=== PATIENT | male | born 1935 | race African-American/Black ===

== ENCOUNTER 2022-08-13 14:11 | Outpatient (CLI) | payer OTHER | END 2022-08-13 19:26 | disposition home or self-care (01) | LOC: RAD 14:11 | PROVIDERS: ATTEND Family Medicine | DX: R10.9 Unspecified abdominal pain (principal); K59.00 Constipation, unspecified ==

== ENCOUNTER 2022-08-27 12:31 | Inpatient (IN) | payer OTHER ==
[~2022-08-27] VITALS: Ht 167.6 cm; Wt 50.9 kg
[2022-08-27] VITALS (8 sets, daily range): BP systolic 155–244; BP diastolic 59–85; TEMP 97.5–98.3; Ht 167.6 cm; Wt 50.9 kg
[2022-08-27 13:25] LABS: POTASSIUM 4.4 mmol/L (3.6-5.2)
[2022-08-27 15:46] LABS: PLATELET COUNT 372 K/uL (142-355)
[2022-08-27] MEDS ORDERED: LIPITOR80 MG PO (19:21)
[2022-08-27] MEDS ORDERED: CLOPIDOGREL75 MG PO (19:22)
[2022-08-27] MEDS ORDERED: HYDR10TA47 PO (19:22)
[2022-08-27] MEDS ORDERED: LISI20TA11 PO (19:23)
[2022-08-27] MEDS ORDERED: MEGESTROL400 MG/10 PO (19:25)
[2022-08-27] MEDS ORDERED: TAMSULOSIN0.4 MG PO (19:26)
[2022-08-27] MEDS ORDERED: NITR0.4S2 SL (19:27)
[2022-08-27] MEDS ORDERED: AMLODIPINE BESYLATE PO (19:28)
[2022-08-28] VITALS (8 sets, daily range): BP systolic 149–196; BP diastolic 47–80; TEMP 97.4–98.2
[2022-08-28 05:38] LABS: PLATELET COUNT 267 K/uL (142-355)
[2022-08-28 06:07] LABS: POTASSIUM 5.2 mmol/L (3.6-5.2)
[2022-08-28] MEDS ORDERED: BREZTRI AEROSPH1 AER INH (09:09)
[2022-08-28] MEDS ORDERED: ALBU90AE13 INH (09:09)
[2022-08-28] MEDS ORDERED: ALBUTEROL0.083 % INH (09:11)
[2022-08-29 04:00] VITALS: BP 162/46; TEMP 97.9
[2022-08-29 07:54] VITALS: BP 192/59; TEMP 98
[2022-08-29 12:11] VITALS: BP 190/61; TEMP 98.1
[2022-08-29 16:16] VITALS: BP 140/43; TEMP 97.8
[2022-08-29 20:00] VITALS: BP 131/44; TEMP 98.7
[2022-08-29 23:53] VITALS: BP 146/54; TEMP 98.5
[2022-08-30 04:00] VITALS: BP 152/58; TEMP 98.9
[2022-08-30 05:30] LABS: PLATELET COUNT 214 K/uL (142-355)
[2022-08-30 05:40] LABS: POTASSIUM 4.8 mmol/L (3.6-5.2)
[2022-08-30 08:00] VITALS: BP 162/49; TEMP 98.8
[2022-08-30] MEDS ORDERED: ONDA4TAB3 PO (12:05)
[2022-08-30] MEDS ORDERED: PANTOPRAZOLE 40MG TA PO (12:05)
[2022-08-30] MEDS ORDERED: METO50TA27 PO (12:05)
[2022-08-30] MEDS ORDERED: MEGESTROL400 MG/10 PO (12:05)
[2022-08-30] MEDS ORDERED: ATOR20TA2 PO (12:05)
[2022-08-30] MEDS ORDERED: NORVASC 5MG TAB PO (12:05)
[2022-08-30] MEDS ORDERED: TAMS0.4C PO (12:05)
[2022-08-30 12:07] VITALS: BP 157/53; TEMP 97.8
[2022-08-30 16:00] VITALS: BP 150/57; TEMP 98.3
== END 2022-08-30 17:25 | disposition home health service (06) | DRG 304 ==
LOC: ED 12:31 → MED/SURG 17:00
PROVIDERS: Internal Medicine; ADMIT Family Medicine; ATTEND Family Medicine
DX: I10 Essential (primary) hypertension (principal); J18.8 Other pneumonia, unspecified organism; E46 Unspecified protein-calorie malnutrition; J44.0 Chronic obstructive pulmonary disease with (acute) lower respiratory infection; N17.8 Other acute kidney failure; E86.0 Dehydration; R11.2 Nausea with vomiting, unspecified; R51.9 Headache, unspecified; I25.2 Old myocardial infarction; Z86.73 Personal history of transient ischemic attack (TIA), and cerebral infarction without residual deficits; R41.81 Age-related cognitive decline; K59.09 Other constipation
CPT/HCPCS: 36415; 80053; 81002; 84484; 85027; 87040; 87502; 87635; 93005; 94664; 94760; 96360; 96361; 96374; 99284; J0696; J1956; J2405; U0003